=== PATIENT | male | born 1960 | race African-American/Black ===

== ENCOUNTER 2021-02-01 09:10 | Emergency (ER) | payer SELFPAY ==
[~2021-02-01] VITALS: Ht 182.9 cm; Wt 71.0 kg
[2021-02-01 09:15] VITALS: BP 121/89
[2021-02-01] MEDS ORDERED: IBUPROFEN 600MG TABLET PO ONE (09:30)
[2021-02-01] MEDS ORDERED: IBUP-2029 MT (10:34)
== END 2021-02-01 10:50 | disposition home or self-care (01) ==
LOC: ER 09:10
DX: S89.82XA Other specified injuries of left lower leg, initial encounter (principal); M25.561 Pain in right knee; M92.529 Juvenile osteochondrosis of tibia tubercle, unspecified leg; W01.0XXA Fall on same level from slipping, tripping and stumbling without subsequent striking against object, initial encounter; Y93.89 Activity, other specified; Y92.018 Other place in single-family (private) house as the place of occurrence of the external cause
CPT/HCPCS: 73562; 99283; L1830